=== PATIENT | male | born 1990 ===

== ENCOUNTER → 2020-04-03 | Outpatient (CLI) | payer OTHER ==
--- NOTE | 2020-04-10 11:48 | REP ---
LUMBOSACRAL SPINE SERIES DATE/TIME: 04/03/2020 at 09:23 a.m. CLINICAL: Low back pain. TECHNIQUE: AP, lateral, bilateral oblique and cone-down views of the lumbosacral spine. FINDINGS: Alignment and lordosis maintained. Vertebral bodies intact. No acute fractures/compression injury or subluxation. No evidence for spondylosis or spondylolisthesis. IMPRESSION: Normal lumbosacral spine radiograph series. MTDD
== END ==
LOC: M RAD 08:39 → EDSEX 08:39
PROVIDERS: ATTEND Surgery
DX: M54.5 Low back pain (principal)